=== PATIENT | female | born 1955 | race Caucasian/White ===

== ENCOUNTER 2023-09-29 14:39 | Outpatient (AMB) | payer BC, SELFPAY ==
--- NOTE | 2023-09-29 14:40 | AM.OFFWIN_ITS ---
Intake Vital Signs 09/29/23 14:46 Height 5 ft 8 in Weight 250 lb BMI 38.0 BMI Reason not done Patient refused/unable BP 128/84 Blood Pressure Location Lt radial Position Sitting Pulse 68 Pulse Source Pulse Oximeter Temp 98.2 F Temp Source Oral Pulse Oximetry (%) 95 Oxygen Delivery Method Room Air Intake Visit Reasons: EP Possible ear infefction Intake Note: pt c/o LT ear pain. Started Thursday. [place] like fluid in ear Patient Tobacco Use Status: Never used Tobacco Allergies No Known Allergies Allergy (Verified 09/29/23 14:51) Do you need a note to return to daycare/school/sports/work: No HPI HPI Comments History of Present Illness Details 68 y/o female patient who presents to [facility] walk [facility] with c/o left ear pain and pressure. Pt believes she might have fluid inside her ears. Denies any recent swimming. Denies fevers, chills, nausea or vomiting. PFSH Social History Patient Tobacco Use Status: Never used Tobacco Physical Exam Vital Signs: Last Vital Signs Temp 98.2 F 09/29/23 14:46 Pulse 68 09/29/23 14:46 BP 128/84 09/29/23 14:46 Pulse Ox 95 09/29/23 14:46 Oxygen Delivery Method Room Air 09/29/23 14:46 BMI result Body Mass Index 38.0 Const General: comfortable and no acute distress Nutritional Appearance: obese Orientation/consciousness: patient oriented x3 HEENT Head: Yes normocephalic Ears: external ears normal and TM abnormal bulging bilateral, erythematous bilateral and with fluid behind the TM bilateral; not bullous, not dull, not with effusion, not perforated and not retracted General nose exam: Abnormal mucous membranes and turbinates present boggy and erythematous Face and sinus: Yes sinuses nontender Mouth: moist mucous membranes Throat: Yes posterior oropharynx normal Resp Effort & Inspection: normal respiratory effort Cardio Heart sounds: S1 normal heart sound present and S2 normal heart sound present Neuro General: patient oriented x3, gait normal and moves all extremities Psych Speech and movement: Normal speech and movement present Assessment & Plan Assessment & Plan (1) Allergic rhinitis: Code(s): J30.9 - Allergic rhinitis, unspecified Qualifiers: Allergic rhinitis trigger: unspecified Allergic rhinitis seasonality: seasonal Qualified Code(s): J30.2 - Other seasonal allergic rhinitis Plan: Pt has An Allergy medication at home, she purchased from [employer] Advised Pt to the medication BID for the next few days. Acetaminophen for pain relief. RTC if not better. Coding Level of Care Code New Pt Level 3 (63796) Diagnoses Seasonal allergic rhinitis, unspecified trigger J30.2 Allergic rhinitis trigger: unspecified Allergic rhinitis seasonality: seasonal Time Spent (min) 15
[2023-09-29 14:46] VITALS: BP 128/84; PULSE 68; TEMP 36.8; O2SAT 95; BMI 38.0
== END 2023-09-29 15:17 | disposition home or self-care (01) ==
PROVIDERS: PCP Internal Medicine; Visit Provider Nurse Practitioner Family
DX: J30.2 Other seasonal allergic rhinitis (principal)
CPT/HCPCS: 99203